=== PATIENT | male | born 2000 | race Hispanic/Latino ===

== ENCOUNTER 2022-08-25 17:21 | Emergency (ER) | payer SELFPAY ==
[~2022-08-25] VITALS: Ht 172.7 cm; Wt 120.0 kg
[2022-08-25 17:50] VITALS: BP 136/72
[2022-08-25 18:01] VITALS: BP 133/86
[2022-08-25 18:16] VITALS: BP 130/77
[2022-08-25] MEDS ORDERED: CYCLOBENZAPRINE10 MG PO (20:12)
[2022-08-25] MEDS ORDERED: NAPROXEN500 MG PO (20:12)
[2022-08-25 23:21] VITALS: BP 123/82
[2022-08-25 23:30] VITALS: BP 114/75
== END 2022-08-25 20:47 | disposition home or self-care (01) | DRG 563 ==
LOC: ED 17:21
DX: S39.012A Strain of muscle, fascia and tendon of lower back, initial encounter (principal); X50.0XXA Overexertion from strenuous movement or load, initial encounter; Y93.89 Activity, other specified; Y92.009 Unspecified place in unspecified non-institutional (private) residence as the place of occurrence of the external cause